=== PATIENT | male | born 1950 ===

== ENCOUNTER 2017-09-16 05:40 | Day surgery (SDC) | payer MEDICARE, OTHER ==
[2017-09-14 16:10] LABS: MICROSCOPIC NOT IND
[2017-09-14 16:18] LABS: ALBUMIN 3.8 g/dL (3.4-5.0); ANION GAP 10 mmol/L (5-15); CALCIUM 8.5 mg/dL (8.5-10.1); CHLORIDE 108 mmol/L (98-107)
[2017-09-14 16:21] LABS: ALANINE AMINOTRANSFERASE 36 U/L (12-78); ALKALINE PHOSPHATASE 51 U/L (45-117); BILIRUBIN,TOTAL 1.1 mg/dL (0.2-1.0); CREATININE 1.51 mg/dL (0.7-1.3); TOTAL PROTEIN 6.8 g/dL (6.4-8.2)
[~2017-09-16] VITALS: Ht 182.9 cm; Wt 117.0 kg
[~2017-09-16 05:40] MED LIST: EZET10TA18 PO; METO25TA91 PO; OLME1TAB32 PO; POTA15TA9 PO; [UNRECOGNIZED DRUG - OTHER] PO
[2017-09-16] MEDS ORDERED: FENTANYL PF 250 MCG/5ML ONE (06:41)
[2017-09-16] MEDS ORDERED: MIDAZOLAM 1 MG/ML, 2ML ONE (06:41)
[2017-09-16] MEDS ORDERED: PROPOFOL 10 MG/ML, 20ML ONE (06:43)
[2017-09-16 06:44] VITALS: BP 169/97
[2017-09-16] MEDS ORDERED: SODIUM CHLORIDE 0.9% PF 10ML ONE (06:44)
[2017-09-16] MEDS ORDERED: CEFAZOLIN 1,000 MG ONE ×2 (06:44)
[2017-09-16] MEDS ORDERED: LACTATED RINGERS 1,000 ML IV SCH (06:47)
[2017-09-16] MEDS ORDERED: LIDOCAINE 1%, 2ML ONE (06:49)
[2017-09-16] MEDS ORDERED: LIDOCAINE 1%, 2ML SQ PRN (07:00)
[2017-09-16] MEDS ORDERED: ONDANSETRON 2MG/ML, 2ML IVPush PRN (07:30)
[2017-09-16] MEDS ORDERED: MEPERIDINE/PF 25MG/0.5ML IVPush PRN (07:30)
[2017-09-16] MEDS ORDERED: hydrALAzine 20 MG/ML, 1ML IV PRN (07:30)
[2017-09-16] MEDS ORDERED: FENTANYL PF 100 MCG/2ML IV PRN (07:30)
[2017-09-16] MEDS ORDERED: HYDROmorphone 1 MG/ML, 1ML IV PRN (07:30)
[2017-09-16] MEDS ORDERED: ACETAMINOPHEN 325 MG TABLET PO PRN (07:30)
[2017-09-16] MEDS ORDERED: PROMETHAZINE 12.5 MG SUPP PR PRN (07:30)
[2017-09-16] MEDS ORDERED: LABETALOL 5MG/ML, 20ML IV PRN (07:30)
[2017-09-16] MEDS ORDERED: OXYcodone 5 MG/5 ML ORAL.SOL UDC PO PRN (07:30)
[2017-09-16] MEDS ORDERED: PHENYLEPHRINE 10 MG/ML ONE (07:40)
[2017-09-16] MEDS ORDERED: ACETAMINOPHEN 650 MG/20.3 ML UDC ONE (09:50)
[2017-09-16] MEDS ORDERED: OXYcodone 5 MG/5 ML ORAL.SOL UDC ONE (09:50)
== END 2017-09-16 11:05 ==
LOC: OUT 05:40
PROVIDERS: ATTEND Urology
DX: N20.0 Calculus of kidney (principal); I10 Essential (primary) hypertension; E78.5 Hyperlipidemia, unspecified
CPT/HCPCS: 36415; 50590; 80053; 81003; 87086; 93005; J0690; J2250; J2370; J2704; J3010; J3490; J7120

== ENCOUNTER 2020-08-18 10:30 | Emergency (ER) | payer MEDICARE, OTHER ==
[~2020-08-18] VITALS: Ht 185.4 cm; Wt 107.5 kg
[~2020-08-18 10:30] MED LIST changes: -EZET10TA18 PO; +EZET10TA70 PO
--- NOTE | 2020-08-18 10:47 | NUR ---
AMBULATORY TO ED ROOM 33, USING OWN CANE, GAIT SLOW & STEADY.
--- NOTE | 2020-08-18 11:03 | NUR ---
Dr Bonds at bs for exam
[2020-08-18] MEDS ORDERED: PRED10TA PO (11:12)
[2020-08-18] MEDS ORDERED: METO50TA6 PO (11:12)
[2020-08-18] MEDS ORDERED: PRAV40TA2 PO (11:16)
[2020-08-18] MEDS ORDERED: SITA1TBM4 PO (11:16)
[2020-08-18] MEDS ORDERED: AZIT250T89 PO (11:16)
[2020-08-18] MEDS ORDERED: AMLO-210 PO (11:16)
[2020-08-18] MEDS ORDERED: CHLO25TA PO (11:16)
[2020-08-18] MEDS ORDERED: LOSARTAN (11:17)
--- NOTE | 2020-08-18 11:18 | NUR ---
XR AT BS
[2020-08-18] MEDS ORDERED: SODIUM CHLORIDE 0.9% 1,000ML IVBOLUS ONE (11:30)
--- NOTE | 2020-08-18 11:34 | NUR ---
PT REPORTS DIZZINESS WHEN GETTING OUT OF BED. PT'S SON REPORTS PT NOT TO NORM & HAS HAD FEVERS AT HOME. PT DX'D W/ CINDY ON 08/13/2020.
--- NOTE | 2020-08-18 11:36 | NUR ---
SIDE RAIL UP X1, CALL LIGHT W/IN REACH, URINAL PROVIDED. SON IN ROOM.
--- NOTE | 2020-08-18 12:05 | NUR ---
WATER PROVIDED TO PT AND SON
[2020-08-18 12:07] LABS: BASOPHILS % (AUTO) 0 % (0-1); EOSINOPHILS % (AUTO) 0 % (1-7); LYMPHOCYTES % (AUTO) 7 % (22-44); MEAN CORPUSCULAR HEMOGLOBIN 31.7 pg (27.5-34.5); MEAN CORPUSCULAR HGB CONC 35.3 g/dL (33.2-36.2); MEAN PLATELET VOLUME 9.5 fL (7.4-10.4); MONOCYTES % (AUTO) 7 % (2-9); NEUTROPHILS % (AUTO) 86 % (42-75); PLATELET COUNT 151 x10^3/uL (130-400); RED BLOOD COUNT 4.72 x10^6/uL (4.38-5.82); RED CELL DISTRIBUTION WIDTH 12.7 % (9.4-14.8)
[2020-08-18 12:11] LABS: ALANINE AMINOTRANSFERASE 87 U/L (12-78); ALBUMIN 3.2 g/dL (3.4-5.0); ANION GAP 12 mmol/L (5-15); CALCIUM 8.6 mg/dL (8.5-10.1); CHLORIDE 99 mmol/L (98-107); CREATININE 1.86 mg/dL (0.7-1.3)
[2020-08-18 12:20] LABS: MD NO
[2020-08-18 12:27] LABS: ALKALINE PHOSPHATASE 39 U/L (45-117); BILIRUBIN,TOTAL 0.7 mg/dL (0.2-1.0); TOTAL PROTEIN 6.8 g/dL (6.4-8.2)
[2020-08-18] MEDS ORDERED: NS + 20MEQ KCL 1,000 ML IV SCH (13:00)
[2020-08-18] MEDS ORDERED: POTASSIUM CHLORIDE 20 MEQ PACKET PO ONE (13:00)
[2020-08-18] MEDS ORDERED: POTASSIUM CHLORIDE 20 MEQ PACKET ONE (13:09)
[2020-08-18] MEDS ORDERED: NS + 20MEQ KCL 1,000 ML IV ONE (13:10)
--- NOTE | 2020-08-18 13:33 | NUR ---
POTASSIUM PO GIVEN. POTASSIUM IV INFUSION INITIATED, INFUSING AT 500ML/HR VIA PUMP. IV SITE PATENT. COVID SWAB SPECIMEN OBTAINED.
--- NOTE | 2020-08-18 13:42 | NUR ---
APPROXIMATELY 125ML URINE IN URINAL. SPECIMEN COLLECTED.
[2020-08-18] MEDS ORDERED: FILTER 0.22 MICRON IV ONE (15:00)
--- NOTE | 2020-08-18 15:14 | NUR ---
BAM RX RECEIVED
--- NOTE | 2020-08-18 15:22 | NUR ---
BAM RX INFORMATION PAGE PROVIDED TO PT. POTASSIUM INFUSION CONTINUING: APPROXIMATELY 80ML YET TO INFUSE. IV SITE PATENT. CARDIAC MONITORING CONTINUING
[2020-08-18] MEDS ORDERED: BAMLANIVIMAB 700 MG in SODIUM CHLORIDE 0.9% 250 ML IVPB ONE (15:30)
--- NOTE | 2020-08-18 15:40 | NUR ---
NS/POTASSIUM INFUSION COMPLETED. IV SITE FLUSHED W/ NS
--- NOTE | 2020-08-18 15:42 | NUR ---
BAM INFUSION STARTED; INFUSING AT 270ML/HR VIA PUMP. IV SITE PATENT.
--- NOTE | 2020-08-18 15:49 | NUR ---
JUICE & SHAHRAM CRACKERS PROVIDED. DIET TRAY ORDERED.
--- NOTE | 2020-08-18 16:20 | NUR ---
DIET TRAY DELIVERED.
--- NOTE | 2020-08-18 16:23 | NUR ---
PT REPORTS NO ADVERSE AFFECTS FROM BAM RX, AT THIS TIME. SITTING COMFORTABLY ON GURNEY, EATING FROM DIET TRAY. CARDIAC MONITORING CONTINUING. BAM INFUSING AT 270ML/HR VIA PUMP; IV SITE PATENT.
--- NOTE | 2020-08-18 17:00 | NUR ---
BAM INFUSION COMPLETED. PT IN POST-INFUSION STAGE; PT AWARE HE HAS 1 HOUR OF OBSERVATION.
--- NOTE | 2020-08-18 17:03 | NUR ---
URINAL EMPTIED OF 700ML URINE
--- NOTE | 2020-08-18 17:08 | NUR ---
PT ENDORSED TO RASHEEDA FLOREZ RN.
--- NOTE | 2020-08-18 17:18 | NUR ---
TASK RN: PT RESTING IN [facility]. VSS. GLORIA. FAMILY IS BEDSIDE
--- NOTE | 2020-08-18 17:53 | NUR ---
PT REPORT FROM KHADRA FLOREZ. PT CARE TO BE RESUMED.
[2020-08-18 18:04] VITALS: BP 115/73
== END 2020-08-18 18:15 | disposition home or self-care (01) ==
LOC: ED 10:54
DX: U07.1 COVID-19 (principal); J18.9 Pneumonia, unspecified organism; E87.6 Hypokalemia; R00.0 Tachycardia, unspecified; I10 Essential (primary) hypertension; E78.00 Pure hypercholesterolemia, unspecified; Z85.528 Personal history of other malignant neoplasm of kidney
CPT/HCPCS: 36415; 71045; 80053; 82728; 83605; 83615; 83735; 85025; 87635; 93005; 96360; 96361; 99285; J3480; J7030; J7050; M0239; Q0239

== ENCOUNTER → 2020-10-04 | Outpatient (CLI) | payer MEDICARE, OTHER ==
[~2020-10-04] MED LIST changes: +AMLO-210 PO; +AZIT250T89 PO; +CHLO25TA PO; +LOSARTAN; +METO50TA6 PO; +PRAV40TA2 PO; +PRED10TA PO; +SITA1TBM4 PO
== END | disposition home or self-care (01) ==
LOC: CFH 08:46
PROVIDERS: ATTEND Internal Medicine Cardiovascular Disease
DX: I11.9 Hypertensive heart disease without heart failure (principal); R94.31 Abnormal electrocardiogram [ECG] [EKG]
CPT/HCPCS: 93306

== ENCOUNTER 2021-01-16 13:37 | Outpatient (CLI) | payer MEDICARE | END 2021-01-16 23:59 | disposition home or self-care (01) | LOC: CVU 13:37 | PROVIDERS: ATTEND Family Medicine | DX: E11.8 Type 2 diabetes mellitus with unspecified complications (principal); E78.5 Hyperlipidemia, unspecified; I10 Essential (primary) hypertension; Z72.0 Tobacco use | CPT/HCPCS: 93922 ==